=== PATIENT | male | born 1970 | race Caucasian/White ===

== ENCOUNTER 2020-02-24 12:06 | Emergency (ER) | payer SELFPAY ==
--- NOTE | 2020-02-24 13:14 | EDM.PDOC ---
ED HPI GENERAL MEDICAL PROBLEM - General Chief Complaint: Upper Extremity Injury/Pain Stated Complaint: RIGHT SHOULDER PAIN Time Seen by Provider: 02/24/20 13:14 - History of Present Illness INITIAL COMMENTS - FREE TEXT/NARRATIVE: History of present illness: [] The patient woke up with pain in the left shoulder 5 days ago. Given the left shoulder blade it was sharp. It began to radiate to the anterior part of the shoulder down the left arm as time went on. Since then he has had increasing pain to moderate severity. Is worse with certain movements. Its not worse with exertion. The patient does not take any medicine for any medical illnesses. He rarely has any medical follow-up. He is a smoker until 1994 and then stop. The patient has no history of coronary vessel disease or stroke. No personal or family history of thromboembolic disease. He has no recent immobilization or surgery or cast. Review of systems: As per history of present illness and below otherwise all systems reviewed and negative. Past medical history: As per history of present illness and as reviewed below otherwise noncontributory. Surgical history: As per history of present illness and as reviewed below otherwise noncontributor y. Social history: No reported history of drug or alcohol abuse. Family history: As per history of present illness and as reviewed below otherwise noncontributory. Physical exam: Constitutional - well developed, well-nourished and in no acute distress HEENT - normocephalic, no evidence of trauma - external nose and mouth normal - no mass in neck and no JVD - mucosae moist EYES - full EOM, PERRL, no icterus - no evidence of inflammation, injection, or drainage Respiratory - no respiratory distress, equal bilateral expansion, lungs clear to auscultation and no abnormal lung sounds Cardiovascular - Regular Rhythm with S1 and S2 appreciated and no murmur, gallop or rub. GI - abdomen soft without distension or organomegaly - normal bowel sounds - no guard or rebound Musculoskeletal no gross deformity of long bones or joints - no tenderness, swelling or edema Neurologic - Alert and oriented times four - CN II-XII grossly intact - motor sensory and coordination symmetrically normal Psychiatric - appropriate mood and affect with normal thought content Hematologic - No petechiae or purpura - mucosa appropriate color and sclera not pale - normal nail bed color and refill Integument - no rash or evidence of trauma - normal turgor Diagnostics: [] Therapeutics: [] Impression: [] Plan: [] Definitive disposition and diagnosis as appropriate pending reevaluation and review of above. Left Shoulder Pain Score (Numeric/FACES): 7 - Related Data Allergies Allergy/AdvReac Type Severity Reaction Status Date / Time Sulfa (Sulfonamide Allergy Nausea and Verified 02/24/20 13:14 Antibiotics) Vomiting Home Meds: Home Meds methylPREDNISolone [Medrol Dose Pack] 4 mg PO DAILY #21 tab 02/24/20 [Rx] Review of Systems - Review of Systems Review Of Systems: Comprehensive ROS is negative, except as noted in HPI. ED EXAM, GENERAL - Physical Exam Exam: See Below Free Text/Narrative:: My physical exam is in the HPI #1 Interpretation EKG Interpretation Comments: EKG done at 1:18 PM sinus rhythm with a heart rate of 77 [place] interval of 126 and axis of 56 and a QT of 419. Normal QRS. Normal ST and T. No prior for comparison. Impression normal Course - Vital Signs Text/Narrative:: 1412 hrs. patient somewhat better discharged in satisfactory condition Last Recorded V/S: Last Vital Signs Temp 36.0 C L 02/24/20 13:15 Pulse 75 02/24/20 13:15 Resp 18 02/24/20 13:15 BP 131/74 02/24/20 13:15 Pulse Ox 97 02/24/20 13:15 - Orders/Labs/Meds Orders: Active Orders 24 hr Category Date Time Status EKG Documentation Completion [RC] AM Care 02/24/20 13:25 Active Labs: Laboratory Tests 02/24/20 02/24/20 Range/Units 13:34 13:34 WBC 6.68 (4.0-11.0) K/uL RBC 4.43 L (4.50-5.90) M/uL Hgb 13.8 (13.0-17.0) g/dL Hct 41.9 (38.0-50.0) % MCV 94.6 (80.0-98.0) fL MCH 31.2 (27.0-32.0) pg MCHC 32.9 (31.0-37.0) g/dL RDW Std Deviation 45.3 (28.0-62.0) fl RDW Coeff of Jermaine 13 (11.0-15.0) % Plt Count 249 (150-400) K/uL MPV 10.30 (7.40-12.00) fL Neut % (Auto) 58.1 (48.0-80.0) % Lymph % (Auto) 32.3 (16.0-40.0) % Cache % (Auto) 8.1 (0.0-15.0) % Eos % (Auto) 1.2 (0.0-7.0) % Baso % (Auto) 0.3 (0.0-1.5) % Neut # (Auto) 3.9 (1.4-5.7) K/uL Lymph # (Auto) 2.2 (0.6-2.4) K/uL Cache # (Auto) 0.5 (0.0-0.8) K/uL Eos # (Auto) 0.1 (0.0-0.7) K/uL Baso # (Auto) 0.0 (0.0-0.1) K/uL Nucleated RBC % 0.0 /100WBC Nucleated RBCs # 0 K/uL Sodium 140 (136-148) mmol/L Potassium 4.1 (3.5-5.1) mmol/L Chloride 106 (98-107) mmol/L Carbon Dioxide 25.2 (21.0-32.0) mmol/L BUN 13 (7.0-18.0) mg/dL Creatinine 0.8 (0.8-1.3) mg/dL Est Cr Clr Drug Dosing 111.70 mL/min Estimated GFR (MDRD) > 60.0 ml/min Glucose 94 (74-106) mg/dL Calcium 8.6 (8.5-10.1) mg/dL Total Bilirubin 0.5 (0.2-1.0) mg/dL AST 25 (15-37) IU/L ALT 33 (14-63) IU/L Alkaline Phosphatase 76 (46-116) U/L Troponin I < 0.050 (0.000-0.056) ng/mL Total Protein 7.2 (6.4-8.2) g/dL Albumin 3.7 (3.4-5.0) g/dL Globulin 3.5 (2.6-4.0) g/dL Albumin/Globulin Ratio 1.1 (0.9-1.6) Lipase 143 (73-393) U/L Meds: Medications Discontinued Medications Generic Name Dose Route Start Last Admin Trade Name Manda PRN Reason Stop Dose Admin Ketorolac Tromethamine 30 mg 02/24/20 13:25 02/24/20 14:01 Toradol IM 02/24/20 13:26 30 mg ONETIME ONE Administration Departure - Departure Time of Disposition: 14:12 Disposition: Home, Self-Care 01 Condition: Good Clinical Impression: Left shoulder pain - Discharge Information Prescriptions: methylPREDNISolone [Medrol Dose Pack] 4 mg PO DAILY #21 tab Referrals: PCP,None [Primary Care Provider] - Forms: ED Department Discharge Additional Instructions: Apply heat, exercise range of motion, of course severe fever shortness of breath associated with shoulder pain it is not musculoskeletal and you should return. [facility] [address] [place] [id number] [id number] [facility] Professional Building [address], [address] [place] [address] The following information is given to patients seen in the emergency department who are being discharged to home. This information is to outline your options for follow-up care. We provide all patients seen in our emergency department with a follow-up referral. The need for follow-up, as well as the timing and circumstances, are variable depending upon the specifics of your emergency department visit. If you don't have a primary care physician on staff, we will provide you with a referral. We always advise you to contact your personal physician following an emergency department visit to inform them of the circumstance of the visit and for follow-up with them and/or the need for any referrals to a consulting specialist. The emergency department will also refer you to a specialist when appropriate. This referral assures that you have the opportunity for follow-up care with a specialist. All of these measure are taken in an effort to provide you with optimal care, which includes your follow-up. Under all circumstances we always encourage you to contact your private physician who remains a resource for coordinating your care. When calling for follow-up care, please make the office aware that this follow-up is from your recent emergency room visit. If for any reason you are refused follow-up, please contact the [facility] Emergency Department at and asked to speak to the emergency department charge nurse. Sepsis Event Note (ED) - Focused Exam Vital Signs: Vital Signs Temp Pulse Resp BP Pulse Ox 02/24/20 13:15 36.0 C L 75 18 131/74 97 - My Orders Last 24 Hours: My Active Orders 02/24/20 13:25 EKG Documentation Completion [RC] AM - Assessment/Plan Last 24 Hours: My Active Orders 02/24/20 13:25 EKG Documentation Completion [RC] AM
[2020-02-24] MEDS ORDERED: Ketorolac 15 MG/ML SDV IM ONE (13:25)
[2020-02-24 14:04] LABS: BLOOD UREA NITROGEN,BUN 13 mg/dL (7.0-18.0); CARBON DIOXIDE,CO2 25.2 mmol/L (21.0-32.0); CHLORIDE,CL 106 mmol/L (98-107); GLUCOSE RANDOM 94 mg/dL (74-106); LIPASE 143 U/L (73-393); POTASSIUM,K 4.1 mmol/L (3.5-5.1); SODIUM,NA 140 mmol/L (136-148)
--- NOTE | 2020-02-24 14:11 | CR ---
Indication: Chest pain. Technique: AP portable view of the chest. Comparison: None Findings: The heart is normal in size. The lungs are clear. No infiltrate, pleural effusion, or pneumothorax is identified. Impression: No acute cardiopulmonary process Dictated by Radha Claudio MD @ Feb 24 2020 2:08PM Signed by Dr. Radha Claudio @ Feb 24 2020 2:09PM
--- NOTE | 2020-02-24 14:11 | CR ---
Indication: Left shoulder pain. Technique: Three views of the left shoulder. Comparison: None Findings: The humeral head is seated within the glenoid. Mild degenerative changes are identified at the acromioclavicular and glenohumeral joint space. No fracture or subluxation is identified. Impression: Mild degenerative change Dictated by Radha Claudio MD @ Feb 24 2020 2:09PM Signed by Dr. Radha Claudio @ Feb 24 2020 2:10PM
== END 2020-02-24 14:31 | disposition home or self-care (01) ==
LOC: MW.ED 12:06
DX: M25.512 Pain in left shoulder (principal); Z88.2 Allergy status to sulfonamides
CPT/HCPCS: 36415; 71045; 73030; 80053; 83690; 84484; 85025; 93005; 96372; 99284; J1885; 93010; 99283